=== PATIENT | female | born 1970 | race Caucasian/White ===

== ENCOUNTER 2019-05-30 14:52 | Inpatient (IN) | payer OTHER, MEDICAID ==
[~2019-05-30] VITALS: Ht 152 cm; Wt 53.0 kg
[2019-05-30 14:57] VITALS: BP 176/98
[2019-05-30 15:21] LABS: BILIRUBIN NEGATIVE (NEGATIVE); BLOOD 1+ (NEGATIVE); CLARITY SL CLOUDY (CLEAR); COLOR YELLOW (YELLOW); GLUCOSE NEGATIVE (NEGATIVE); KETONE NEGATIVE (NEGATIVE); LEUKO ESTERASE NEGATIVE (NEGATIVE); NITRITE NEGATIVE (NEGATIVE); SPECIFIC GRAVITY <= 1.005 (1.005-1.030); UROBILINOGEN 0.2 E.U./dl (0.2-1.0)
[2019-05-30 15:27] LABS: URINE AMPHETAMINES < 1000 (1000ng/ml); URINE BARBITURATES < 200 (200ng/ml); URINE BENZODIAZEPINES < 200 (200ng/ml); URINE CANNABINOIDS (THC) < 50 (50ng/ml); URINE COCAINE < 300 (300ng/ml); URINE METHADONE < 300 (300ng/ml); URINE OPIATES < 300 (300ng/ml)
[2019-05-30 15:28] LABS: URINE PHENCYCLIDINE < 25 (25ng/ml)
[2019-05-30 15:33] LABS: BACTERIA TRACE; EPITHELIAL CELLS 0-2; RBC 0-2 rbc/hpf (0-2); WBC 0-2 wbc/hpf (0-5)
[2019-05-30 15:41] LABS: BASO # 0.1 10*3/uL (0.0-0.1); BASO % 0.5 % (0.0-1.0); EOS # 0.2 10*3/uL (0.0-0.4); HEMATOCRIT 41.6 % (37.0-47.0); HEMOGLOBIN 14.4 g/dl (12.0-16.0); LYMPH # 3.2 10*3/uL (1.3-4.4); MEAN CELL VOLUME 91.6 fl (81.0-99.0); MEAN CORPUSCULAR HGB 31.7 pg (27.0-31.0); MEAN CORPUSCULAR HGB CONC 34.6 g/dl (33.0-37.0); MEAN PLATELET VOLUME 9.1 fl (9.6-12.3); MONO # 0.7 10*3/uL (0.1-1.0); MONO % 4.8 % (3.0-9.0); NEUT # 11.1 10*3/uL (2.3-7.9); NEUT % 72.4 % (47.0-73.0); PLATELET COUNT AUTOMATED 323 10*3/uL (130-400); RED BLOOD COUNT 4.54 10*6/uL (4.10-5.10); RED CELL DISTRI WIDTH 13.6 % (0-14.5); WHITE BLOOD COUNT 15.3 10*3/uL (4.8-10.8)
[2019-05-30 15:56] LABS: ALBUMIN 3.9 gm/dl (3.1-4.5); ALKALINE PHOSPHATASE 86 U/L (45-117); BUN 2 mg/dl (7-24); CHLORIDE 102 mmol/L (98-107); CREATININE 0.58 mg/dL (0.55-1.02); POTASSIUM 3.3 mmol/L (3.5-5.1); SGOT/AST 15 IU/L (3-35); SGPT/ALT 12 U/L (12-78); SODIUM 136 mmol/L (136-145); TOTAL PROTEIN 7.3 gm/dL (6.4-8.2)
[2019-05-30 15:57] LABS: ACETAMINOPHEN (TYLENOL) < 5.0 ug/ml (10-30); ETHYL ALCOHOL < 3.0 mg/dl (<3)
--- NOTE | 2019-05-30 16:26 | NUR ---
PT STATES THAT THE MEDICATION HAS NOT BEEN EFFECTIVE. LUCAS PARKER MADE AWARE.
--- NOTE | 2019-05-30 16:30 | NUR ---
PT STATES THAT THE MEDICATION HAS NOT IMPROVED HER SYMPTOMS. LUCAS PARKER MADE AWARE.
[2019-05-30] MEDS ORDERED: VISTARIL25 MG PO (17:25)
[2019-05-30] MEDS ORDERED: MIRTAZAPINE7.5 MG PO (17:26)
[2019-05-30] MEDS ORDERED: BUSPIRONE HCL7.5 MG PO (17:27)
[2019-05-30] MEDS ORDERED: CITALOPRAM40 MG PO (17:27)
[2019-05-30] MEDS ORDERED: TRAZODONE150 MG PO (17:28)
[2019-05-30] MEDS ORDERED: PERCOCET 10-321 EACH PO (17:28)
[2019-05-30] MEDS ORDERED: XANAX1 MG PO (17:29)
[2019-05-30 17:45] VITALS: BP 130/78
--- NOTE | 2019-05-30 18:29 | NUR ---
PT IS NOW SLEEPING IN BED. PTS FRIEND LEFT AND WOULD LIKE TO LEAVE HER NUMBER WITH ME. PRINCE [phone].
--- NOTE | 2019-05-30 19:05 | NUR ---
NURSE TO NURSE REPORT GIVEN TO THIS RN.PT AWAITING POSSIBLE ADMISSION TO [facility].
--- NOTE | 2019-05-30 22:08 | NUR ---
KE CRAFT a 49 year old F admitted via wheel chair from the ADMITTING as a voluntary admission. Arrived on unit at 2208. ALLERGIES: NKA. Vital signs are: [id number] 126/74. The client signed the following forms with stated understanding: Authorization For The Release of Medical Information, Clothing List, Consent to Voluntary Admission and Hospitalization, Consent and Release Forms/Receipt of Rights, Acknowledgement of Advance Directive Information, Behavioral Health Consent Form, and Informed Consent of Medications. Admitted under the services of Dr. RONY SETH,[facility]. A search was conducted and hazardous articles were removed. Client was oriented to the unit. [place] PATIENT FROM HOME PRIOR GOING TO EMERGENCY ROOM. NO WOUNDS ON ADMISSION.
[2019-05-30] MEDS ORDERED: ZANAFLEX4 M1 PO (22:11)
--- NOTE | 2019-05-30 22:18 | NUR ---
DR DREW CALLED AND UPDATED ABOUT PATIENT ADMISSION. PATIENT PLACED UNDER DR SCHMID FOR MEDICAL MANAGEMENT
--- NOTE | 2019-05-30 22:19 | NUR ---
PT TO [facility] WITH RN AND SECURITY @ [id number].
[2019-05-30 22:20] VITALS: BP 126/74; BP 126/77
--- NOTE | 2019-05-30 22:24 | NUR ---
RODNEY DUNAWAY PROVIDED NURSE TO NURSE REPORT.
--- NOTE | 2019-05-31 00:20 | NUR ---
DR DREW ON UNIT TO SEE PATIENT
--- NOTE | 2019-05-31 01:15 | NUR ---
DR DREW WITH RETURN CALL TO REVIEW MEDICATIONS FOR PATIENT
--- NOTE | 2019-05-31 05:48 | NUR ---
24 HR chart check completed.
--- NOTE | 2019-05-31 05:50 | NUR ---
PT SLEPT 4 HOURS IN QUIET ROOM.
[2019-05-31 06:51] LABS: BASO # 0.1 10*3/uL (0.0-0.1); BASO % 0.9 % (0.0-1.0); EOS # 0.3 10*3/uL (0.0-0.4); EOS % 3.6 % (1.0-4.0); HEMATOCRIT 41.1 % (37.0-47.0); HEMOGLOBIN 14.1 g/dl (12.0-16.0); LYMPH # 2.4 10*3/uL (1.3-4.4); LYMPH % 29.5 % (27.0-41.0); MEAN CELL VOLUME 91.9 fl (81.0-99.0); MEAN CORPUSCULAR HGB 31.5 pg (27.0-31.0); MEAN CORPUSCULAR HGB CONC 34.3 g/dl (33.0-37.0); MEAN PLATELET VOLUME 9.3 fl (9.6-12.3); MONO # 0.5 10*3/uL (0.1-1.0); MONO % 6.3 % (3.0-9.0); NEUT # 4.9 10*3/uL (2.3-7.9); NEUT % 59.5 % (47.0-73.0); PLATELET COUNT AUTOMATED 303 10*3/uL (130-400); RED BLOOD COUNT 4.47 10*6/uL (4.10-5.10); RED CELL DISTRI WIDTH 13.7 % (0-14.5); WHITE BLOOD COUNT 8.2 10*3/uL (4.8-10.8)
[2019-05-31 07:22] LABS: CHLORIDE 106 mmol/L (98-107); POTASSIUM 4.1 mmol/L (3.5-5.1); SODIUM 137 mmol/L (136-145)
[2019-05-31 07:38] LABS: ALBUMIN 3.3 gm/dl (3.1-4.5); ALKALINE PHOSPHATASE 76 U/L (45-117); BUN 7 mg/dl (7-24); CHOLESTEROL 208 mg/dL (<200); CREATININE 0.61 mg/dL (0.55-1.02); HDL CHOLESTEROL 45 mg/dl (40-60); LDL CHOLESTEROL 138 mg/dL (9-159); SGOT/AST 9 IU/L (3-35); SGPT/ALT 17 U/L (12-78); TOTAL PROTEIN 6.3 gm/dL (6.4-8.2); TRIGLYCERIDES 123 mg/dl (<150); VLDL CHOLESTEROL 25 mg/dL (6-40)
--- NOTE | 2019-05-31 07:46 | NUR ---
DR. SCHMID ON UNIT TO ASSESS PT, UPDATE PROVIDED.
[2019-05-31 07:47] VITALS: BP 140/74
[2019-05-31 08:15] LABS: VITAMIN D, 25-HYDROXY 34.7 ng/mL (30-100)
--- NOTE | 2019-05-31 09:36 | NUR ---
P: PT MED SEEKING ASKING FOR PAIN MEDS AND ANXIETY MEDS, PT CURSING AT STAFF. I: PT ADMINISTERED PRN PAIN MEDS PER ORDERS, ADMINISTERED SCHEDULED VISTARIL PER ORDERS, PROVIDED LOW STIMULATION ENVIRONMENT FOR PT TO CALM R: PT ALERT TO PERSON, PLACE, TIME AND SITUATION. PT CONTINUES TO REQUEST ANXIETY MEDS AND REQUESTING TO LEAVE. PRINCE KINCAID GUEST ATTENDANT ON UNIT TO ASSESS PT, UPDATE PROVIDED, ADVISED THAT PT IS TO PUT IN WRITING HER REQUEST FOR DISCHARGE AND THE DOCOTR HAS 72 HOURS TO DECIDE D/C PLAN. PT CONTINUES TO YELL OUT AND CURSE AT STAFF. PT SITTING IN QUIET ROOM WITH THE LIGHTS OFF AT THIS TIME. P: MONITOR PT BEHAVIORS ON Q15 MIN SAFETY CHECKS, ENCORUAGE MED COMPLIANCE AND PROVIDE MED EDUCATION, ENCOURAGE PT TO UTILIZE POSITIVE COPING SKILLS TO DEAL WITH ANXIETY, PROVIDE EMOTIONAL SUPPORT AND 1:1 FOR PT TO VOICE FEELINGS.
--- NOTE | 2019-05-31 10:15 | NUR ---
PT CONTINUES TO CURSE AND YELL OUT AT STAFF, INCREASED ANXIETY AND TEARFULNESS NOTED. PT MEDICATED WITH GEODON 10MG IM PER PRN ORDERS.
--- NOTE | 2019-05-31 12:30 | NUR ---
P: REFUSED 1300 VISTARIL, PT ISOLATIVE TO ROOM, REFUSING LUNCH I: PROVIDED EMOTIONAL SUPPORT AND 1:1 FOR PT TO VOICE FEELINGS, ENCOURAGE MED COMPLIANCE AND PROVIDE MED EDUCATION, ENCOURAGE PO INTAKE, ENCOURAGE GROUP PARTICIPATION AND SOCIALIZATION R: PT STATED "NO THANKS" WHEN PRESENTED VISTARIL, WHEN ASKED IF THE GEODON HELPED PT STATED "NO IM ABOUT THE SAME". NO S/S OF ANXIETY NOTED AT THIS TIME. PT LAYING IN BED WITH EYES CLOSED P: MONITOR PT BEHAVIORS ON Q15 MIN SAFETY CHECKS, ENCORUAGE MED COMPLINACE AND PROVIDE MED EDUCATION, ENCOURAGE GROUP PARTICIPATION AND SOCIALIZATION, ENCOOURAGE PO INTAKE.
--- NOTE | 2019-05-31 14:31 | NUR ---
PT C/O LEG AND BACK PAIN, REQUESTING PRN PAIN MEDS, MEDS ADMINISTERED PER PRN ORDERS. WILL CONTINUE TO MONITOR.
--- NOTE | 2019-05-31 14:54 | NUR ---
psychosocial hx completed.
[2019-05-31 20:40] VITALS: BP 144/88
--- NOTE | 2019-05-31 23:00 | NUR ---
P-ISOLATIVE. PATIENT ALERT AND ORIENTED. PATIENT WITH NO RESPIRATORY DISTRESS. PATIENT WITH NO HALLUCINATIONS OR DELUSIONS. PATIENT WITH NO SUICIDAL OR HOMICIDAL IDEATIONS. I-REDIRECTION WITH 1:1 THERAPEUTIC INTERVENTIONS. EDUATE AND ENCOURAGE MEDICATION COMPLIANCE. R-PATIENT ISOLATIVE AND WITHDRAWN IN DINING AREA AND IN ROOM DURING THE SHIFT. PATENT MEDICATION COMPLIANT. PATIENT AMBULATING IN HALLWAY AND IN ROOM WITH STEADY GAIT. P-CONTINUE TO ENCOURAGE MEDICATION COMPLIANCE, CONTINUE TO ENCOURAGE GROUP THERAPY WHILE AWAKE
--- NOTE | 2019-06-01 02:59 | NUR ---
24 HR chart check completed.
--- NOTE | 2019-06-01 06:21 | NUR ---
PATIENT SLEPT 5 HOURS OF INTERRUPTED SLEEP THROUGHOUT SHIFT. Q 15 MINUTE CHECKS MAINTAINED
[2019-06-01 07:42] VITALS: BP 153/78
--- NOTE | 2019-06-01 08:15 | NUR ---
Treatment Plan meeting with Dr. Cameron, RN, AT, and [employer]. Plan for discharge Saturday. Pt. will return Home at this point.
--- NOTE | 2019-06-01 08:58 | NUR ---
CALLED TO [employer]. THEY ARE PENDING CASE TO MD FOR REVIEW AND WILL CALL ME BACK WITH DETERMINATION. WAITING FOR RETURN CALL.
--- NOTE | 2019-06-01 11:14 | NUR ---
DR. SCHMID ON UNIT TO ASSESS PT, UPDATE PROVIDED.
--- NOTE | 2019-06-01 11:16 | NUR ---
PT C/O NECK AND LEG PAIN 10/10 ON PAIN SCALE. PT MEDICATED WITH PERCOCET PER PT REQUEST. WILL CONTINUE TO MONITOR.
--- NOTE | 2019-06-01 12:13 | NUR ---
SPOKE WITH DR URIBE RE: PT ANXIETY AND REQUESTING MEDICATION. VERBAL ORDERS RECEVIED FOR VISTARIL 50MG PO Q4H PRN.
--- NOTE | 2019-06-01 12:16 | NUR ---
AM GROUP COMPLETED PT ASSESSMENT AND SPENT A CONSIDERABLE AMOUNT OF TIME 1:1 LISTENING TO PT AND OFFERING COPING STRATEGIES. PT GOALS ESTABLISHED. PT AGREES TO ATTEND GROUP THERAPY
--- NOTE | 2019-06-01 12:25 | NUR ---
P: PT ISOLATIVE TO ROOM THROUGHOUT THE DAY. PT REFUSING GROUP/ACTIVITIES. PT MED SEEKING ASKING FOR ATIVAN AND MULTIPLE PAIN MEDS MULITPLE TIMES THROUGHOUT THE DAY. PT TEARFUL, IRRITABLE AND RESTLESS AT TIMES. I: PROVIDED EMOTIONAL SUPPORT AND 1:1 FOR PT TO VOICE FEELINGS, ENCOURAGE MED COMPLIANCE AND PROVIDE MED EDUCATION, ADMINISTER MEDS PER ORDERS, ENCOURAGE GROUP PARTICIPATION AND SOCIALIZATION R: PT CAME OUT OF ROOM FOR LUNCH. PT REMAINS TEARFUL AND AGITATED WITH STAFF AT TIMES. PT CONTINUES TO ASK FOR ATIVAN AND PAIN MEDS. ADVSIED THAT WE ARE UNABLE TO ADMINISTER ATIVAN PER DRS ORDERS, PERCOCET ADMINISTERED PER ORDERS PT ASKING FOR VISTARIL ADVISED THAT DR. URIBE HAS DISCONTINUED VISTARIL DUE TO PT STATING IT DID NOT WORK. PT REQUESTING VISTARIL, ORDERS RECEIVED FROM DR URIBE. PT ALERT TO PERSON, PLACE AND TIME. PT MED COMPLIANT WITHOUT DIFFICULTY, MED EDUCATION PROVIDED. PT AMBULATORY THROUGHOUT UNIT, GAIT STEADY. PT CONTINENT OF BOWEL AND BLADDER. P: MONITOR PT BEHAVIORS ON Q15 MIN SAFETY CHECKS, PROVIDE EMOTIONAL SUPPORT AND 1:1 FOR PT TO VOICE FEELINGS, ENCOURAGE MED COMPLIANCE, CONTINUE TO PROVIDE MED EDUCATION AND ADMINISTER MEDS PER ORDERS, ENCOURAGE GROUP PARTICIPATION AND SOCIALIZATION.
--- NOTE | 2019-06-01 13:29 | NUR ---
SPOKE WITH DR MIRELES AT [phone] RE: PT DISCHARGE FOR TOMORROW AT 0930 TOMORROW AND IF MEDICAL MEDS COULD BE COMPLETED TODAY. PER SHE WILL LOOK INTO IT.
--- NOTE | 2019-06-01 13:41 | NUR ---
Spoke with Patient in the Dining Area. Pt. seated in Chair and Expressed that she wanted to Discharge Today. Reassurance provided and Discharge Plan for Pt. to return home. Pt. has agreed that she will Follow with Adele Win at discharge. States that "She saw Dr. Holman In the past". Patient gave permission for [employer] Division Manager to call her Sister Malinda Adams to arrange transportation for discharge tommorow. Pt. Sister can pick Patient up at 9:30 a.m. Notified Nursing Staff in the Behavioral Health Unit. Primary Care appointment kept with Dr. Justin Valdivia 06/10/19 2:00 p.m.
--- NOTE | 2019-06-01 15:42 | NUR ---
PM GROUP PT ATTENDED AFTERNOON GROUP THERAPY AFTER MUCH ENCOURAGEMENT BUT ONLY STAYED ABOUT 15 MINUTES BEFORE RETURNING TO HER ROOM. PT EXPRESSED SOME ANXIETY WHILE IN GROUP STATING, "THIS IS RIDICULOUS, I'M IN A HOSPITAL AND I CAN'T GET ANYTHING FOR MY ANXIETY"
--- NOTE | 2019-06-01 15:59 | NUR ---
Indivdual time spent with pt this afternoon. Pt shared about her previous life trauma and that she has not fully healed from these esperiences. Pt also spoke of her current life stressors. Assisted pt in problem solving. Pt is to discharge tomorrow.
[2019-06-01 19:39] VITALS: BP 126/79
--- NOTE | 2019-06-01 20:40 | NUR ---
EVENING/MUSIC TRIVIA/ART PT ATTENDED AND PARTICIPATED DURING GROUP. PT COMPLETED A COLORING PICTURE THEN LEFT ACTIVITY ROOM TO NOT RETURN. PT WILL CONTINUE TO BE ENOCURAGED TO ATTEND AN DPARTICIPATE IN FUTURE GROUP SESSIONS TO BEST OF PT ABILITY. PT DID NOT EXPRESS ANY ANXIETY/PTSD SYMPTOMS AT THIS TIME.
--- NOTE | 2019-06-01 21:45 | NUR ---
24 HR chart check completed.
--- NOTE | 2019-06-01 22:57 | NUR ---
PT ATTENDED RECREATIONAL ACTIVITY THIS EVENING. ALERT & ORIENTED X 4. IRRITABLE BUT ALSO APOLOGETIC. STATED SHE MADE A WRONG CHOICE BY COMING HERE & CANNOT WAIT TO LEAVE TOMORROW. VERBAL & DISCUSSED RECENT STRESSORS. STATED THAT SHE HAS FELT LIKE AN EMOTIONAL ROLLERCOASTER RECENTLY. DENIES SUICIDAL FEELINGS. HAS BEEN ANXIOUS & CRYING BRIEFLY AT TIMES. MEDICATED WITH VISTARIL 50 MG PO @ 2105. ALSO REQUESTED & MEDICATED WITH PERCOCET & OXYCODONE @ 210 FOR C/O NECK & BACK PAIN. RATED PAIN 9/10.
--- NOTE | 2019-06-02 04:09 | NUR ---
PT AWAKE AT THIS TIME. SHE HAS BEEN RESTLESS THROUGHOUT THE NIGHT NAPPING FOR VERY BRIEF INTERVALS. C/O CHROIC NECK & ARM PAIN. REQUESTED & MEDICATED WITH PERCOCET & OXYCODONE @ 0404. RATED PAIN 04/04.
--- NOTE | 2019-06-02 05:39 | NUR ---
PT HAS REMAINED AWAKE THROUGHOUT THE SHIFT SLEEPING APROX 2 HOURS TOTAL. HAS WALKED IN THE [place] SPORADICALLY & SPOKE APPROPRIATELY TO STAFF.
--- NOTE | 2019-06-02 07:27 | NUR ---
DR. SCHMID ON FLOOR TO ASSESS PT, UPDATE PROVIDED. MADE AWARE OF PLANS FOR DISCHARGE TODAY.
[2019-06-02 08:00] VITALS: BP 139/87
--- NOTE | 2019-06-02 08:02 | NUR ---
PT SITTING IN DINING ROOM WITH PEERS, EATING BREAKFAST AT THIS TIME. NO S/S OF DISTRESS NOTED. RESPS EVEN AND UNLABORED ON ROOM AIR.
--- NOTE | 2019-06-02 09:11 | NUR ---
PATIENT C/O NECK PAIN RATING 8 OUT OF 10, STATING IT IS THROBBING. PT STATES THAT ALL NONPHARMALOGICAL INTERVENTIONS INEFFECTIVE. PT REQUESTING AND RECEIVED AT THIS TIME PRN PO PERCOCET/OXYCODONE PER PRN ORDERS. WILL CONTINUE TO MONITOR FOR EFFECTIVENESS.
--- NOTE | 2019-06-02 09:21 | NUR ---
NO ADVERSE MOODS OR BEHAVIORS NOTED THIS SHIFT. PT ALERT AND ORIENTED X3. PT STATED HER MOOD IS FINE, SHE JUST CANT WAIT TO GET OUT OF HERE. DENIES SI/HI OR HALLUCINATIONS. C/O NECK PAIN, SEE EMAR FOR FURTHER DETAIL. NO S/S OF INTERACTING WITH INTERNAL STIMULI. NO S/S OF DELUSIONAL THOUGHT PROCESS NOTED. PT INTERACTIVE WITH PEERS AND STAFF. REFUSED BREAKFAST. GAIT STEADY WHILE AMBULATING. MAKES NEEDS KNOWN. Q15 MINUTE CHECKS MAINTAINED FOR SAFETY.
[2019-06-02] MEDS ORDERED: DULOXETINE HCL60 MG PO (09:30)
[2019-06-02] MEDS ORDERED: TIZANIDINE HCL4 MG PO (09:30)
[2019-06-02] MEDS ORDERED: FOLGARD TABLET1 EACH PO (09:30)
[2019-06-02] MEDS ORDERED: DULOXETINE HCL30 MG PO (09:30)
--- NOTE | 2019-06-02 09:55 | NUR ---
PATIENT OFF THE UNIT AT THIS TIME VIA WHEELCHAIR. ESCORTED BY MENTAL HEALTH SPECAILIST. PT GIVEN BELONGINGS, MEDICATIONS FROM PHARMACY, LOCK BOX BELONGINGS, AND DISCHARGE PACKET. PT STATED THAT PRN WAS EFFECTIVE FROM EARLIER. NO S/S OF DISTRESS NOTED. RESPS EVEN AND UNLABORED ON ROOM AIR.
--- NOTE | 2019-06-02 10:47 | NUR ---
Patient discharged to home. Follow-up was scheduled with pt's PCP Dr Valdivia. Pt refused psychiatric follow-up. Scheduled appointment with Radha Win PhD for counseling. Patient denies suicidal ideations and is motivated for outpatient treatment for depression and PTSD.
== END 2019-06-02 09:55 | disposition home or self-care (01) | DRG 885 ==
LOC: ED 14:52 → 3N 21:47
PROVIDERS: Nurse Practitioner Women's Health; Physician Assistant; Student in an Organized Health Care Education/Training Program; ADMIT Psychiatry & Neurology Psychiatry
DX: F33.2 Major depressive disorder, recurrent severe without psychotic features (principal); R65.10 Systemic inflammatory response syndrome (SIRS) of non-infectious origin without acute organ dysfunction; G89.29 Other chronic pain; F41.9 Anxiety disorder, unspecified; F34.1 Dysthymic disorder; E87.6 Hypokalemia; F17.210 Nicotine dependence, cigarettes, uncomplicated; F60.3 Borderline personality disorder; Z98.51 Tubal ligation status; Z71.6 Tobacco abuse counseling; Z80.1 Family history of malignant neoplasm of trachea, bronchus and lung; Z80.0 Family history of malignant neoplasm of digestive organs; Z79.899 Other long term (current) drug therapy